=== PATIENT | male | born 2000 | race Two or more races ===

== ENCOUNTER 2022-11-13 18:48 | Inpatient (IN) | payer OTHER ==
[2022-11-13 19:11] VITALS: BMI 23.6
[2022-11-13] MEDS ORDERED: P-EPHED 60MG/TRIPROLIDI 2.5MG TABLET PO PRN (19:46)
[2022-11-13] MEDS ORDERED: DICYCLOMINE HCL 10 MG CAPSULE PO PRN (19:46)
[2022-11-13] MEDS ORDERED: MAG HYDROX/AL HYDROX/SIMETH 30 ML UNIT-DOSE CUP PO PRN (19:46)
[2022-11-13] MEDS ORDERED: NALOXONE HCL 0.4 MG/ML VIAL IM PRN (19:46)
[2022-11-13] MEDS ORDERED: guaiFENesin 600 MG TABLET.ER (FP) PO PRN (19:46)
[2022-11-13] MEDS ORDERED: BENZONATATE 200 MG CAPSULE PO PRN (19:46)
[2022-11-13] MEDS ORDERED: ACETAMINOPHEN 325 MG TABLET (FP) PO PRN (19:46)
[2022-11-13] MEDS ORDERED: NICOTINE 10 MG CARTRIDGE (INHALER) IH PRN (19:46)
[2022-11-13] MEDS ORDERED: NALOXONE HCL (KLOXXADO) 8 MG SPRAY NS PRN (19:46)
[2022-11-13] MEDS ORDERED: BISMUTH SUBSALICYLATE 524 MG/30 ML PO PRN (19:46)
[2022-11-13] MEDS ORDERED: ONDANSETRON *ODT* 4 MG TABLET SL PRN (19:46)
[2022-11-13] MEDS ORDERED: IBUPROFEN 400 MG TABLET (FP) PO PRN (19:46)
[2022-11-13] MEDS ORDERED: LOPERAMIDE HCL 2 MG CAPSULE PO PRN (19:46)
[2022-11-13] MEDS ORDERED: BENZOCAINE/MENTHOL (CHLORASEPTIC ) LOZENGE MM PRN (19:46)
[2022-11-13] MEDS ORDERED: MELATONIN 5 MG TABLETS PO PRN (19:46)
[2022-11-13] MEDS ORDERED: POLYETHYLENE GLYCOL (HEALTHYLAX) 3350 17 GM PACKET PO PRN (19:46)
[2022-11-13] MEDS ORDERED: METHOCARBAMOL 500 MG TABLET PO PRN (19:46)
[2022-11-13] MEDS ORDERED: MAGNESIUM HYDROX 2400MG/30ML ORAL SUSPENSION 30 ML CUP PO PRN (19:46)
[2022-11-13] MEDS ORDERED: IBUPROFEN 600 MG TABLET (FP) PO PRN (19:46)
[2022-11-13] MEDS ORDERED: chlordiazePOXIDE HCL 25 MG CAPSULE PO PRN (19:50)
[2022-11-13] MEDS ORDERED: chlordiazePOXIDE HCL 25 MG CAPSULE PO ONE (19:50)
[2022-11-13] MEDS ORDERED: methaDONE HCL 10 MG TABLET PO ONE (19:51)
[2022-11-13] MEDS ORDERED: methaDONE HCL 10 MG TABLET (FOR DETOX USE ONLY) ONE (20:04)
[2022-11-13] MEDS ORDERED: THIAMINE HCL 100 MG TABLET (FP) PO SCH (22:00)
[2022-11-13] MEDS: chlordiazePOXIDE HCL 25 MG CAPSULE PO SCH (22:20)
[2022-11-13] MEDS: levETIRAcetam 500 MG TABLET (FP) PO SCH (22:20)
[2022-11-14] MEDS: chlordiazePOXIDE HCL 25 MG CAPSULE PO SCH ×2 (05:21→10:23)
[2022-11-14 09:24] VITALS: BP 117/63; PULSE 72; RESP 18; TEMP 97.6
[2022-11-14] MEDS ORDERED: PRENATAL VITAMINS W/ FOLIC ACID TABLET (FP) PO SCH (10:00)
[2022-11-14] MEDS: levETIRAcetam 500 MG TABLET (FP) PO SCH (10:22)
[2022-11-14] MEDS ORDERED: methaDONE HCL 10 MG TABLET PO SCH (10:45)
[2022-11-14 11:22] LABS: HEMATOCRIT 40.3 % (35.4-49); HEMOGLOBIN 13.5 GM/dL (11.7-16.9); MCH 28.5 pg (25.7-33.7); MCHC 33.5 g/dl (32.0-35.9); MEAN CELL VOLUME 85.1 fl (80-96); MEAN PLT VOLUME 9.2 fl (7.5-11.1); PLATELET COUNT 264 10^3/uL (134-434); RBC 4.74 M/mm3 (4.00-5.60); RDW 14.7 % (11.9-15.9); WHITE BLOOD COUNT 10.1 K/mm3 (4.0-10.0)
[2022-11-14 11:41] LABS: CALCIUM 9.6 mg/dL (8.5-10.1)
[2022-11-14 11:42] LABS: ALBUMIN 4.1 g/dl (3.4-5.0); BLOOD UREA NITROGEN 12.6 mg/dL (7-18)
[2022-11-14 11:44] LABS: CREATININE 0.9 mg/dL (0.55-1.3)
[2022-11-14 11:46] LABS: BILIRUBIN,TOTAL 0.3 mg/dL (0.2-1); TOT PROT 7.7 g/dl (6.4-8.2)
[2022-11-15] MEDS ORDERED: chlordiazePOXIDE HCL 25 MG CAPSULE PO SCH (05:00)
[2022-11-16] MEDS ORDERED: chlordiazePOXIDE HCL 10 MG CAPSULE PO PRN
[2022-11-16] MEDS ORDERED: chlordiazePOXIDE HCL 10 MG CAPSULE PO SCH (05:00)
[2022-11-17] MEDS ORDERED: chlordiazePOXIDE HCL 10 MG CAPSULE PO SCH (05:00)
[2022-11-18] MEDS ORDERED: chlordiazePOXIDE HCL 10 MG CAPSULE PO ONE (05:00)
== END 2022-11-14 11:36 | disposition left against medical advice (07) | DRG 770 ==
LOC: YASAS 18:48 → Y6N 19:59
PROVIDERS: ADMIT Allergy & Immunology; ATTEND Surgery
PROC: HZ2ZZZZ Detoxification Services for Substance Abuse Treatment (ICD-10-PCS; principal; 2022-11-13)
DX: F10.230 Alcohol dependence with withdrawal, uncomplicated (principal); F11.23 Opioid dependence with withdrawal; F12.20 Cannabis dependence, uncomplicated; F17.210 Nicotine dependence, cigarettes, uncomplicated; F19.280 Other psychoactive substance dependence with psychoactive substance-induced anxiety disorder; F19.282 Other psychoactive substance dependence with psychoactive substance-induced sleep disorder; F41.9 Anxiety disorder, unspecified; Z56.0 Unemployment, unspecified; Z59.00 Homelessness unspecified
CPT/HCPCS: 36415; 80053; 85027; 86780; 87811; 93005; 93010; C9803-CS; U0003; U0005

== ENCOUNTER 2022-12-06 13:12 | Inpatient (IN) | payer OTHER ==
[2022-12-06 14:09] VITALS: BMI 23.6
[2022-12-06] MEDS ORDERED: BENZONATATE 200 MG CAPSULE PO PRN (18:24)
[2022-12-06] MEDS ORDERED: MAG HYDROX/AL HYDROX/SIMETH 30 ML UNIT-DOSE CUP PO PRN (18:24)
[2022-12-06] MEDS ORDERED: BISMUTH SUBSALICYLATE 524 MG/30 ML PO PRN (18:24)
[2022-12-06] MEDS ORDERED: ACETAMINOPHEN 325 MG TABLET (FP) PO PRN (18:24)
[2022-12-06] MEDS ORDERED: IBUPROFEN 600 MG TABLET (FP) PO PRN (18:24)
[2022-12-06] MEDS ORDERED: NALOXONE HCL (KLOXXADO) 8 MG SPRAY NS PRN (18:24)
[2022-12-06] MEDS ORDERED: DICYCLOMINE HCL 10 MG CAPSULE PO PRN (18:24)
[2022-12-06] MEDS ORDERED: LOPERAMIDE HCL 2 MG CAPSULE PO PRN (18:24)
[2022-12-06] MEDS ORDERED: MAGNESIUM HYDROX 2400MG/30ML ORAL SUSPENSION 30 ML CUP PO PRN (18:24)
[2022-12-06] MEDS ORDERED: POLYETHYLENE GLYCOL (HEALTHYLAX) 3350 17 GM PACKET PO PRN (18:24)
[2022-12-06] MEDS ORDERED: guaiFENesin 600 MG TABLET.ER (FP) PO PRN (18:24)
[2022-12-06] MEDS ORDERED: chlordiazePOXIDE HCL 25 MG CAPSULE PO PRN (18:24)
[2022-12-06] MEDS ORDERED: NICOTINE 10 MG CARTRIDGE (INHALER) IH PRN (18:24)
[2022-12-06] MEDS ORDERED: IBUPROFEN 400 MG TABLET (FP) PO PRN (18:24)
[2022-12-06] MEDS ORDERED: NALOXONE HCL 0.4 MG/ML VIAL IM PRN (18:24)
[2022-12-06] MEDS ORDERED: BENZOCAINE/MENTHOL (CHLORASEPTIC ) LOZENGE MM PRN (18:24)
[2022-12-06] MEDS ORDERED: MELATONIN 5 MG TABLETS PO SCH (22:00)
[2022-12-06] MEDS: METHOCARBAMOL 500 MG TABLET PO PRN (22:29)
[2022-12-06] MEDS: THIAMINE HCL 100 MG TABLET (FP) PO SCH (22:29)
[2022-12-06] MEDS: chlordiazePOXIDE HCL 25 MG CAPSULE PO SCH (22:30)
[2022-12-06] MEDS: hydrOXYzine PAMOATE 25 MG CAPSULE (FP) PO PRN (22:30)
[2022-12-07] MEDS: METHOCARBAMOL 500 MG TABLET PO PRN ×2 (06:04→17:32)
[2022-12-07] MEDS: chlordiazePOXIDE HCL 25 MG CAPSULE PO SCH ×4 (06:04→22:15)
[2022-12-07] MEDS ORDERED: methaDONE HCL 10 MG TABLET PO SCH (09:00)
[2022-12-07] MEDS: methaDONE HCL 40 MG DISPERSABLE TABLET PO SCH (09:58)
[2022-12-07] MEDS: PRENATAL VITAMINS W/ FOLIC ACID TABLET (FP) PO SCH (09:59)
[2022-12-07] MEDS: busPIRone HCL 10 MG TABLET (FP) PO SCH ×2 (10:48→22:14)
[2022-12-07] MEDS: NICOTINE POLACRILEX 2 MG GUM BUC PRN (17:30)
[2022-12-07] MEDS: THIAMINE HCL 100 MG TABLET (FP) PO SCH (22:14)
[2022-12-07] MEDS: MELATONIN 5 MG TABLETS PO SCH (22:14)
[2022-12-07] MEDS: QUEtiapine FUMARATE 100 MG TABLET (FP) PO SCH (22:15)
[2022-12-08] MEDS: chlordiazePOXIDE HCL 25 MG CAPSULE PO SCH ×4 (05:39→22:12)
[2022-12-08] MEDS: methaDONE HCL 40 MG DISPERSABLE TABLET PO SCH (05:39)
[2022-12-08] MEDS: ONDANSETRON *ODT* 4 MG TABLET SL PRN (05:40)
[2022-12-08] MEDS: busPIRone HCL 10 MG TABLET (FP) PO SCH ×2 (10:09→22:12)
[2022-12-08] MEDS: PRENATAL VITAMINS W/ FOLIC ACID TABLET (FP) PO SCH (10:09)
[2022-12-08] MEDS: METHOCARBAMOL 500 MG TABLET PO PRN ×2 (10:11→18:11)
[2022-12-08 12:03] LABS: HEMATOCRIT 33.8 % (35.4-49); HEMOGLOBIN 11.6 GM/dL (11.7-16.9); MCH 29.1 pg (25.7-33.7); MCHC 34.2 g/dl (32.0-35.9); MEAN CELL VOLUME 84.9 fl (80-96); MEAN PLT VOLUME 9.6 fl (7.5-11.1); PLATELET COUNT 210 10^3/uL (134-434); RBC 3.99 M/mm3 (4.00-5.60); RDW 14.4 % (11.9-15.9); WHITE BLOOD COUNT 6.6 K/mm3 (4.0-10.0)
[2022-12-08 12:17] LABS: POTASSIUM 4.6 mmol/L (3.5-5.1)
[2022-12-08 12:21] LABS: CALCIUM 9.3 mg/dL (8.5-10.1)
[2022-12-08 12:22] LABS: ALBUMIN 3.4 g/dl (3.4-5.0); BLOOD UREA NITROGEN 12.9 mg/dL (7-18)
[2022-12-08 12:25] LABS: CREATININE 0.9 mg/dL (0.55-1.3)
[2022-12-08 12:26] LABS: BILIRUBIN,TOTAL 0.4 mg/dL (0.2-1); TOT PROT 6.6 g/dl (6.4-8.2)
[2022-12-08] MEDS: hydrOXYzine PAMOATE 25 MG CAPSULE (FP) PO PRN (18:11)
[2022-12-08] MEDS: HYDROCORTISONE 2.5% TOPICAL CREAM 30 GM TUBE TP SCH (22:11)
[2022-12-08] MEDS: QUEtiapine FUMARATE 100 MG TABLET (FP) PO SCH (22:12)
[2022-12-08] MEDS: THIAMINE HCL 100 MG TABLET (FP) PO SCH (22:12)
[2022-12-08] MEDS: MELATONIN 5 MG TABLETS PO SCH (22:12)
[2022-12-08 22:59] LABS: PH,URINE 7.5 (5.0-8.0); URINE APPEARANCE CLEAR; URINE BILIRUBIN NEGATIVE (NEGATIVE); URINE COLOR YELLOW; URINE GLUCOSE (UA) NEGATIVE (NEGATIVE); URINE KETONE NEGATIVE (NEGATIVE); URINE LEUK ESTERASE NEGATIVE (NEGATIVE); URINE NITRITE NEGATIVE (NEGATIVE); URINE PROTEIN NEGATIVE (NEGATIVE); URINE UROBILINOGEN 0.2 mg/dL (0.2-1.0)
[2022-12-09] MEDS ORDERED: chlordiazePOXIDE HCL 10 MG CAPSULE PO PRN
[2022-12-09] MEDS: methaDONE HCL 40 MG DISPERSABLE TABLET PO SCH (05:38)
[2022-12-09] MEDS: chlordiazePOXIDE HCL 10 MG CAPSULE PO SCH ×5 (05:38→22:49)
[2022-12-09] MEDS: METHOCARBAMOL 500 MG TABLET PO PRN ×3 (05:42→23:32)
[2022-12-09] MEDS: PRENATAL VITAMINS W/ FOLIC ACID TABLET (FP) PO SCH (10:14)
[2022-12-09] MEDS: busPIRone HCL 10 MG TABLET (FP) PO SCH ×3 (10:14→22:48)
[2022-12-09] MEDS: hydrOXYzine PAMOATE 25 MG CAPSULE (FP) PO PRN ×2 (10:17→22:48)
[2022-12-09 12:33] LABS: HEMATOCRIT 35.7 % (35.4-49); HEMOGLOBIN 12.3 GM/dL (11.7-16.9); MCH 28.9 pg (25.7-33.7); MCHC 34.4 g/dl (32.0-35.9); MEAN CELL VOLUME 84.1 fl (80-96); PLATELET COUNT 236 10^3/uL (134-434); RBC 4.25 M/mm3 (4.00-5.60); RDW 14.4 % (11.9-15.9); WHITE BLOOD COUNT 8.6 K/mm3 (4.0-10.0)
[2022-12-09] MEDS: MELATONIN 5 MG TABLETS PO SCH ×2 (22:33→22:48)
[2022-12-09] MEDS: QUEtiapine FUMARATE 100 MG TABLET (FP) PO SCH ×2 (22:33→22:48)
[2022-12-09] MEDS: THIAMINE HCL 100 MG TABLET (FP) PO SCH ×2 (22:33→22:48)
[2022-12-09] MEDS: HYDROCORTISONE 2.5% TOPICAL CREAM 30 GM TUBE TP SCH (22:33)
[2022-12-10] MEDS: chlordiazePOXIDE HCL 10 MG CAPSULE PO SCH ×2 (05:52→17:31)
[2022-12-10] MEDS: methaDONE HCL 40 MG DISPERSABLE TABLET PO SCH (05:52)
[2022-12-10] MEDS: busPIRone HCL 10 MG TABLET (FP) PO SCH ×2 (10:14→22:25)
[2022-12-10] MEDS: PRENATAL VITAMINS W/ FOLIC ACID TABLET (FP) PO SCH (10:14)
[2022-12-10] MEDS: NICOTINE POLACRILEX 2 MG GUM BUC PRN (12:02)
[2022-12-10] MEDS: METHOCARBAMOL 500 MG TABLET PO PRN ×2 (13:48→22:25)
[2022-12-10] MEDS: hydrOXYzine PAMOATE 25 MG CAPSULE (FP) PO PRN (17:37)
[2022-12-10] MEDS: HYDROCORTISONE 2.5% TOPICAL CREAM 30 GM TUBE TP SCH (22:24)
[2022-12-10] MEDS: THIAMINE HCL 100 MG TABLET (FP) PO SCH (22:25)
[2022-12-10] MEDS: QUEtiapine FUMARATE 100 MG TABLET (FP) PO SCH (22:25)
[2022-12-10] MEDS: MELATONIN 5 MG TABLETS PO SCH (22:26)
[2022-12-11] MEDS ORDERED: chlordiazePOXIDE HCL 10 MG CAPSULE PO ONE (05:00)
[2022-12-11] MEDS: methaDONE HCL 40 MG DISPERSABLE TABLET PO SCH (05:40)
[2022-12-11] MEDS: METHOCARBAMOL 500 MG TABLET PO PRN (05:42)
[2022-12-11 06:19] VITALS: BP 116/66; PULSE 76; RESP 18; TEMP 98.2
[2022-12-11] MEDS: ONDANSETRON *ODT* 4 MG TABLET SL PRN (06:32)
[2022-12-11] MEDS: NICOTINE POLACRILEX 2 MG GUM BUC PRN (07:39)
== END 2022-12-11 10:15 | disposition home or self-care (01) | DRG 773 ==
LOC: YASAS 13:12 → Y3N 19:13
PROVIDERS: ADMIT Allergy & Immunology; ATTEND Allergy & Immunology
PROC: HZ2ZZZZ Detoxification Services for Substance Abuse Treatment (ICD-10-PCS; principal; 2022-12-06)
DX: F10.230 Alcohol dependence with withdrawal, uncomplicated (principal); F11.20 Opioid dependence, uncomplicated; F12.20 Cannabis dependence, uncomplicated; F17.210 Nicotine dependence, cigarettes, uncomplicated; F19.280 Other psychoactive substance dependence with psychoactive substance-induced anxiety disorder; F19.282 Other psychoactive substance dependence with psychoactive substance-induced sleep disorder; F41.9 Anxiety disorder, unspecified; K92.1 Melena; Z56.0 Unemployment, unspecified; Z59.00 Homelessness unspecified
CPT/HCPCS: 36415; 80053; 81003; 83036; 85027; 86780; C9803-CS; Q0162; U0003; U0005

== ENCOUNTER 2022-12-23 17:41 | Inpatient (IN) | payer OTHER ==
[2022-12-23 18:30] VITALS: BMI 24.0
[2022-12-23] MEDS ORDERED: P-EPHED 60MG/TRIPROLIDI 2.5MG TABLET PO PRN (20:20)
[2022-12-23] MEDS ORDERED: POLYETHYLENE GLYCOL (HEALTHYLAX) 3350 17 GM PACKET PO PRN (20:20)
[2022-12-23] MEDS ORDERED: MAG HYDROX/AL HYDROX/SIMETH 30 ML UNIT-DOSE CUP PO PRN (20:20)
[2022-12-23] MEDS ORDERED: AMMONIUM LACTATE 12% LOTION 225 GM BOTTLE TP PRN (20:20)
[2022-12-23] MEDS ORDERED: guaiFENesin 600 MG TABLET.ER (FP) PO PRN (20:20)
[2022-12-23] MEDS ORDERED: IBUPROFEN 600 MG TABLET (FP) PO PRN (20:20)
[2022-12-23] MEDS ORDERED: NICOTINE POLACRILEX 2 MG GUM BUC PRN (20:20)
[2022-12-23] MEDS ORDERED: LOPERAMIDE HCL 2 MG CAPSULE PO PRN (20:20)
[2022-12-23] MEDS ORDERED: COLLOIDAL OATMEAL 1 BAR EACH TP PRN (20:20)
[2022-12-23] MEDS ORDERED: BENZOCAINE/MENTHOL (CHLORASEPTIC ) LOZENGE MM PRN (20:20)
[2022-12-23] MEDS ORDERED: ACETAMINOPHEN 325 MG TABLET (FP) PO PRN (20:20)
[2022-12-23] MEDS ORDERED: MAGNESIUM HYDROX 2400MG/30ML ORAL SUSPENSION 30 ML CUP PO PRN (20:20)
[2022-12-23] MEDS ORDERED: hydrOXYzine PAMOATE 25 MG CAPSULE (FP) PO PRN (20:20)
[2022-12-23] MEDS ORDERED: BENZONATATE 200 MG CAPSULE PO PRN (20:20)
[2022-12-23] MEDS ORDERED: IBUPROFEN 400 MG TABLET (FP) PO PRN (20:20)
[2022-12-23] MEDS ORDERED: QUEtiapine FUMARATE 100 MG TABLET (FP) PO ONE (22:00)
[2022-12-23] MEDS: MELATONIN 5 MG TABLETS PO SCH (23:30)
[2022-12-23] MEDS: THIAMINE HCL 100 MG TABLET (FP) PO SCH (23:30)
[2022-12-23] MEDS: levETIRAcetam 500 MG TABLET (FP) PO SCH (23:32)
[2022-12-24] MEDS: GABAPENTIN 400 MG CAPSULE PO SCH ×3 (06:24→21:20)
[2022-12-24 06:54] VITALS: RESP 18
[2022-12-24] MEDS: methaDONE HCL 40 MG DISPERSABLE TABLET PO SCH (08:24)
[2022-12-24] MEDS: PRENATAL VITAMINS W/ FOLIC ACID TABLET (FP) PO SCH (10:05)
[2022-12-24] MEDS: levETIRAcetam 500 MG TABLET (FP) PO SCH ×2 (10:06→21:20)
[2022-12-24] MEDS: MELATONIN 5 MG TABLETS PO SCH (21:20)
[2022-12-24] MEDS: THIAMINE HCL 100 MG TABLET (FP) PO SCH (21:21)
[2022-12-24] MEDS ORDERED: QUEtiapine FUMARATE 100 MG TABLET (FP) PO SCH (22:00)
[2022-12-25] MEDS: GABAPENTIN 400 MG CAPSULE PO SCH ×2 (06:42→14:27)
[2022-12-25] MEDS: methaDONE HCL 40 MG DISPERSABLE TABLET PO SCH (06:42)
[2022-12-25 07:02] VITALS: BP 123/67; PULSE 67; TEMP 97.3
[2022-12-25] MEDS: PRENATAL VITAMINS W/ FOLIC ACID TABLET (FP) PO SCH (10:01)
[2022-12-25] MEDS: levETIRAcetam 500 MG TABLET (FP) PO SCH (10:01)
== END 2022-12-25 16:55 | disposition home or self-care (01) | DRG 773 ==
LOC: YASAS 17:41 → Y3W 22:52
PROVIDERS: ADMIT Allergy & Immunology; ATTEND Psychiatry & Neurology Pain Medicine
PROC: HZ2ZZZZ Detoxification Services for Substance Abuse Treatment (ICD-10-PCS; principal; 2022-12-23)
DX: F11.20 Opioid dependence, uncomplicated (principal); F10.20 Alcohol dependence, uncomplicated; F12.20 Cannabis dependence, uncomplicated; F17.210 Nicotine dependence, cigarettes, uncomplicated; F19.282 Other psychoactive substance dependence with psychoactive substance-induced sleep disorder; F41.9 Anxiety disorder, unspecified; Z62.810 Personal history of physical and sexual abuse in childhood; Z86.69 Personal history of other diseases of the nervous system and sense organs
CPT/HCPCS: C9803-CS; U0003; U0005

== ENCOUNTER 2024-10-27 02:35 | Inpatient (IN) | payer OTHER ==
[2024-10-27 02:51] VITALS: BMI 23.3
[2024-10-27] MEDS ORDERED: NICOTINE POLACRILEX 2 MG GUM BUC PRN (04:20)
[2024-10-27] MEDS ORDERED: ACETAMINOPHEN 325 MG TABLET (FP) PO PRN (04:20)
[2024-10-27] MEDS ORDERED: BISMUTH SUBSALICYLATE 524 MG/30 ML PO PRN (04:20)
[2024-10-27] MEDS ORDERED: DICYCLOMINE HCL 10 MG CAPSULE PO PRN (04:20)
[2024-10-27] MEDS ORDERED: BENZOCAINE/MENTHOL (CHLORASEPTIC ) LOZENGE MM PRN (04:20)
[2024-10-27] MEDS ORDERED: MAG HYDROX/AL HYDROX/SIMETH 30 ML UNIT-DOSE CUP PO PRN (04:20)
[2024-10-27] MEDS ORDERED: IBUPROFEN 400 MG TABLET (FP) PO PRN (04:20)
[2024-10-27] MEDS ORDERED: LOPERAMIDE HCL 2 MG CAPSULE PO PRN (04:20)
[2024-10-27] MEDS ORDERED: NALOXONE (NARCAN) HCL 4 MG/0.1 ML SPRAY NS PRN (04:20)
[2024-10-27] MEDS ORDERED: BENZONATATE 200 MG CAPSULE PO PRN (04:20)
[2024-10-27] MEDS ORDERED: guaiFENesin 600 MG TABLET.ER (FP) PO PRN (04:20)
[2024-10-27] MEDS ORDERED: MAGNESIUM HYDROX 2400MG/30ML ORAL SUSPENSION 30 ML CUP PO PRN (04:20)
[2024-10-27] MEDS ORDERED: POLYETHYLENE GLYCOL (HEALTHYLAX) 3350 17 GM PACKET PO PRN (04:20)
[2024-10-27] MEDS ORDERED: methaDONE HCL 10 MG TABLET (FOR DETOX USE ONLY) PO PRN ×2 (04:25→10:56)
[2024-10-27] MEDS: methaDONE HCL 10 MG TABLET (FOR DETOX USE ONLY) PO ONE (05:07)
[2024-10-27] MEDS: NICOTINE 14 MG/24 HOURS TOPICAL PATCH TD SCH (09:39)
[2024-10-27] MEDS: PRENATAL VITAMINS W/ FOLIC ACID TABLET (FP) PO SCH (09:39)
[2024-10-27] MEDS: cloNIDine HCL 0.1 MG TABLET PO SCH (10:20)
[2024-10-27] MEDS: clonazePAM 0.5 MG ODT TABLETS SL SCH (10:47)
[2024-10-27] MEDS: ESCITALOPRAM OXALATE 10 MG TABLET PO SCH (10:47)
[2024-10-27] MEDS: methaDONE HCL 10 MG TABLET PO ONE (11:15)
[2024-10-27] MEDS ORDERED: clonazePAM 0.5 MG ODT TABLETS SL PRN ×2 (13:15→13:25)
[2024-10-27] MEDS: clonazePAM 0.5 MG ODT TABLETS SL ONE (15:08)
[2024-10-27] MEDS ORDERED: QUEtiapine FUMARATE 50 MG TABLET PO SCH (22:00)
[2024-10-27] MEDS: QUEtiapine FUMARATE 50 MG TABLET PO PRN (22:37)
[2024-10-27] MEDS: MELATONIN 5 MG TABLETS PO SCH (22:37)
[2024-10-27] MEDS: METHOCARBAMOL 500 MG TABLET PO PRN (22:37)
[2024-10-27] MEDS: THIAMINE 100 MG TABLET PO SCH (22:37)
[2024-10-28] MEDS: ONDANSETRON *ODT* 4 MG TABLET SL PRN (07:40)
[2024-10-28] MEDS: hydrOXYzine PAMOATE 25 MG CAPSULE (FP) PO PRN (07:43)
[2024-10-28] MEDS: methaDONE 40 MG, methaDONE 10 MG PO ONE (09:18)
[2024-10-28 11:40] LABS: HEMATOCRIT 38.1 % (40.1-51.0); HEMOGLOBIN 12.1 g/dL (13.7-17.5); MCHC 31.8 g/dl (32.3-36.5); MEAN CELL VOLUME 87.8 fl (79.0-92.2); MEAN PLT VOLUME 11.7 fl (9.4-12.4); PLATELET COUNT 281 x10^3/uL (163-337); RDW 13.9 % (11.9-15.3)
[2024-10-28 11:46] LABS: POTASSIUM 3.4 mmol/L (3.5-5.1)
[2024-10-28 11:56] LABS: CALCIUM 9.1 mg/dL (8.5-10.1)
[2024-10-28 11:57] LABS: ALBUMIN 3.7 g/dl (3.4-5.0); BLOOD UREA NITROGEN 7.8 mg/dL (7-18)
[2024-10-28 12:00] LABS: CREATININE 0.8 mg/dL (0.55-1.3)
[2024-10-28 12:01] LABS: BILIRUBIN,TOTAL 0.6 mg/dL (0.2-1)
[2024-10-28 12:02] LABS: TOT PROT 6.9 g/dl (6.4-8.2)
[2024-10-29] MEDS: methaDONE 40 MG, methaDONE 20 MG PO ONE (09:28)
[2024-10-29] MEDS ORDERED: methaDONE HCL 10 MG TABLET (FOR DETOX USE ONLY) PO ONE (10:00)
[2024-10-29] MEDS: cloNIDine HCL 0.1 MG TABLET PO PRN (13:11)
[2024-10-29] MEDS: POTASSIUM CHLORIDE ORAL LIQUID 20 MEQ/15 ML PO ONE (13:11)
[2024-10-29] MEDS: IBUPROFEN 600 MG TABLET (FP) PO PRN (22:41)
[2024-10-30] MEDS: methaDONE 40 MG, methaDONE 30 MG PO ONE (09:49)
[2024-10-30] MEDS: POTASSIUM CHLORIDE ORAL LIQUID 20 MEQ/15 ML PO ONE (14:37)
[2024-10-31] MEDS: methaDONE HCL 40 MG DISPERSABLE TABLET PO ONE (09:52)
[2024-10-31] MEDS ORDERED: methaDONE HCL 10 MG TABLET (FOR DETOX USE ONLY) PO ONE (10:00)
[2024-10-31 11:29] LABS: ABSOLUTE IMMATURE GRANULOCYTES 0.04 x10^3/uL (0.0-0.031); BASOPHILS # 0.03 x10^3/uL (0.01-0.08); EOSINOPHILS # 0.09 x10^3/uL (0.04-0.54); HEMATOCRIT 39.8 % (40.1-51.0); HEMOGLOBIN 12.5 g/dL (13.7-17.5); MCHC 31.4 g/dl (32.3-36.5); MONOCYTE # 0.51 x10^3/uL (0.30-0.82); MONOCYTE % 5.6 % (5.3-12.2); PLATELET COUNT 280 x10^3/uL (163-337)
[2024-10-31 21:13] VITALS: RESP 16
[2024-11-01 06:10] VITALS: BP 126/71; PULSE 69; TEMP 97.8
[2024-11-01] MEDS ORDERED: methaDONE 80 MG, methaDONE 10 MG PO ONE (10:00)
== END 2024-11-01 06:00 | disposition home or self-care (01) | DRG 773 ==
LOC: YASAS 02:35 → Y6N 04:39 → Y3N 10-31 17:07
PROVIDERS: ADMIT Allergy & Immunology; ATTEND Allergy & Immunology
PROC: HZ2ZZZZ Detoxification Services for Substance Abuse Treatment (ICD-10-PCS; principal; 2024-10-27)
DX: F11.23 Opioid dependence with withdrawal (principal); F10.230 Alcohol dependence with withdrawal, uncomplicated; F17.210 Nicotine dependence, cigarettes, uncomplicated; F19.280 Other psychoactive substance dependence with psychoactive substance-induced anxiety disorder; F19.282 Other psychoactive substance dependence with psychoactive substance-induced sleep disorder; F41.9 Anxiety disorder, unspecified; E87.6 Hypokalemia; Z62.810 Personal history of physical and sexual abuse in childhood; Z91.410 Personal history of adult physical and sexual abuse; Z63.0 Problems in relationship with spouse or partner; Z63.8 Other specified problems related to primary support group
CPT/HCPCS: 36415; 80053; 80305; 80307; 83036; 84132; 85025; 85027; 86780; 93005; 93010; Q0162